=== PATIENT | female | born 1995 | race African-American/Black ===

== ENCOUNTER 2022-05-06 12:24 | Emergency (ER) | payer MEDICAID, OTHER ==
[~2022-05-06] VITALS: Ht 180.3 cm; Wt 82.7 kg
[2022-05-06 15:19] VITALS: BP 121/77
[2022-05-06] MEDS ORDERED: IBUP800T27 PO (15:20)
== END 2022-05-06 15:26 | disposition home or self-care (01) ==
LOC: ER 12:24
DX: S80.11XA Contusion of right lower leg, initial encounter (principal); S91.202A Unspecified open wound of left great toe with damage to nail, initial encounter; Z79.1 Long term (current) use of non-steroidal anti-inflammatories (NSAID); V47.6XXA Car passenger injured in collision with fixed or stationary object in traffic accident, initial encounter; Y93.89 Activity, other specified; Y92.410 Unspecified street and highway as the place of occurrence of the external cause; Y99.8 Other external cause status
CPT/HCPCS: 11730; 73590